=== PATIENT | female | born 1995 | race Two or more races ===

== ENCOUNTER 2018-06-03 22:57 | Emergency (ER) | payer OTHER ==
[~2018-06-03] VITALS: Ht 157.5 cm; Wt 66.0 kg
[~2018-06-03 22:57] MED LIST: PREN1TAB60 PO
[2018-06-03 23:28] LABS: BASOPHILS # (AUTO) 0.01 x10^3/uL (0-0.1); BASOPHILS % (AUTO) 0 % (0-1); EOSINOPHILS # (AUTO) 0.12 x10^3/uL (0-0.4); EOSINOPHILS % (AUTO) 2 % (1-7); LYMPHOCYTES # (AUTO) 0.47 x10^3/uL (1-3.4); LYMPHOCYTES % (AUTO) 9 % (22-44); MD NO; MEAN CORPUSCULAR HEMOGLOBIN 26.1 pg (27.0-34.8); MEAN CORPUSCULAR HGB CONC 32.4 g/dL (32.4-35.8); MEAN CORPUSCULAR VOLUME 80.5 fL (80-100); MEAN PLATELET VOLUME 7.6 fL (7.4-10.4); MONOCYTES # (AUTO) 0.36 x10^3/uL (0.2-0.8); MONOCYTES % (AUTO) 7 % (2-9); NEUTROPHILS # (AUTO) 4.28 x10^3/uL (1.8-6.8); NEUTROPHILS % (AUTO) 82 % (42-75); PLATELET COUNT 295 x10^3/uL (130-400); RED CELL DISTRIBUTION WIDTH 20.5 % (9.6-15.2)
[2018-06-03] MEDS ORDERED: MECLIZINE CHEWABLE 25 MG TAB PO ONE (23:30)
[2018-06-03] MEDS ORDERED: ONDANSETRON ODT 4 MG PO ONE (23:30)
[2018-06-03] MEDS ORDERED: MECLIZINE CHEWABLE 25 MG TAB ONE (23:38)
[2018-06-03] MEDS ORDERED: ONDANSETRON ODT 4 MG ONE (23:39)
[2018-06-03 23:40] LABS: ALANINE AMINOTRANSFERASE 18 U/L (12-78); ALBUMIN 3.8 g/dL (3.4-5.0); ANION GAP 8 mmol/L (5-15); CALCIUM 8.2 mg/dL (8.5-10.1); CHLORIDE 109 mmol/L (98-107); CREATININE 0.57 mg/dL (0.55-1.02)
[2018-06-03 23:42] LABS: ALKALINE PHOSPHATASE 48 U/L (45-117); BILIRUBIN,TOTAL 0.5 mg/dL (0.2-1.0); TOTAL PROTEIN 7.1 g/dL (6.4-8.2)
[2018-06-03 23:55] LABS: MICROSCOPIC AUTO
[2018-06-03 23:56] LABS: CULTURE INDICATED? NO
--- NOTE | 2018-06-03 23:58 | NUR ---
RECEIVED BS REPORT FROM ZAC LOZANO TO ASSUME PT. CARE AT THIS TIME. REAGANN. PT. RESTING ON GURNEY. CALL LIGHT IN REACH. ALL SAFETY MEASURES OBSERVED. FLU PENDING
[2018-06-04 00:29] LABS: RAPID INFLUENZA A Negative (Negative); RAPID INFLUENZA B Negative (Negative)
[2018-06-04 01:06] VITALS: BP 118/66
== END 2018-06-04 01:07 | disposition home or self-care (01) ==
LOC: ED 23:34
DX: R42 Dizziness and giddiness (principal); J45.909 Unspecified asthma, uncomplicated
CPT/HCPCS: 36415; 80053; 81001; 85025; 87400; 93005; 99284; Q0162

== ENCOUNTER 2019-06-19 15:48 | Emergency (ER) | payer MEDICAID ==
[~2019-06-19] VITALS: Ht 165.1 cm; Wt 62.8 kg
[2019-06-19 15:51] VITALS: BP 123/80
--- NOTE | 2019-06-19 16:16 | NUR ---
PT AMBULATORY TO ROOM 2 W/ C/O SORE THROAT AND LEFT UPPER GUM PAIN X 9 DAYS. PT ALSO STATE SSHE HAS NECK TENDERNESS X 2 DAYS. PT AOX4. RESTING ON GURNEY. NADN. SPEAKING IN FULL SENTENCES.
== END 2019-06-19 16:52 | disposition home or self-care (01) ==
LOC: ED 16:50
DX: K08.89 Other specified disorders of teeth and supporting structures (principal); L04.0 Acute lymphadenitis of face, head and neck
CPT/HCPCS: 99283

== ENCOUNTER 2019-07-20 18:22 | Emergency (ER) | payer MEDICAID ==
[~2019-07-20] VITALS: Ht 165.1 cm; Wt 62.0 kg
[2019-07-20 18:36] VITALS: BP 126/68
--- NOTE | 2019-07-20 18:43 | NUR ---
PT HERE WITH C/O COUGH AND SOB X 4 DAYS. PER PT, SHE STATES SHE COUGHED UP BLOOD AFTER BRUSHING TEETH.
[2019-07-20] MEDS ORDERED: DEXAMETHASONE 4 MG TABLET ONE (18:55)
--- NOTE | 2019-07-20 18:58 | NUR ---
PT MEDICATED PER ORDERS.
[2019-07-20] MEDS ORDERED: DEXAMETHASONE 4 MG TABLET PO ONE (19:00)
--- NOTE | 2019-07-20 19:41 | NUR ---
Patient/Caregiver given discharge instructions and they have confirmed that they understand the instructions. Patient ambulatory with steady gait.
== END 2019-07-20 19:48 | disposition home or self-care (01) ==
LOC: ED 19:40
DX: J15.9 Unspecified bacterial pneumonia (principal); R06.00 Dyspnea, unspecified; J02.9 Acute pharyngitis, unspecified; J45.909 Unspecified asthma, uncomplicated
CPT/HCPCS: 71046; 87081; 87147; 87880; 99284